=== PATIENT | male | born 1950 | race Caucasian/White ===

== ENCOUNTER → 2016-12-27 14:00 | Outpatient (REF) | payer MEDICARE, SELFPAY | END | disposition home or self-care (01) | LOC: OLS.DANBUR 14:00 | PROVIDERS: Visit Provider Internal Medicine | DX: N40.0 Benign prostatic hyperplasia without lower urinary tract symptoms (principal); E78.5 Hyperlipidemia, unspecified; H81.09 Meniere's disease, unspecified ear | CPT/HCPCS: 87493 ==

== ENCOUNTER → 2017-09-01 10:11 | Outpatient (REF) | payer MEDICARE, SELFPAY ==
[2017-09-12 09:27] LABS: Fats, Neutral Normal (.); Fats, Total Normal (.)
== END ==
LOC: OLS.DANBUR 10:11
PROVIDERS: Visit Provider Internal Medicine
DX: R19.7 Diarrhea, unspecified (principal)
CPT/HCPCS: 82705; 87493

== ENCOUNTER → 2017-09-01 18:03 | Outpatient (CLI) | payer MEDICARE, SELFPAY ==
--- NOTE | 2017-09-01 18:03 | DT_ITS ---
This patient was seen during an EMR downtime August 27, 2017 - September 03, 2017. This patient may have a combination of paper and electronic documentation or all paper documentation. All documentation is viewable within the e-chart portion of [employer] for each patient visit.
== END ==
LOC: LABSPEC 18:05 → OLS.DANBUR 18:05
PROVIDERS: Visit Provider Internal Medicine
DX: R19.7 Diarrhea, unspecified (principal)

== ENCOUNTER → 2019-10-02 05:00 | Outpatient (REF) | payer MEDICARE, SELFPAY ==
[2019-10-02 09:48] LABS: Hemoglobin A1c 5.7 % (3.8-5.6)
== END ==
LOC: OLS.DANBUR 05:00
PROVIDERS: Visit Provider Internal Medicine
DX: E78.5 Hyperlipidemia, unspecified (principal); Z79.899 Other long term (current) drug therapy
CPT/HCPCS: 36415; 83036

== ENCOUNTER → 2019-10-06 04:00 | Outpatient (REF) | payer MEDICARE, SELFPAY ==
[2019-10-06 08:19] LABS: Anion Gap 7 (5-15); BUN 18 mg/dL (7-18); BUN/Creat Ratio 22.2 RATIO (10-20); Calcium,Total 8.6 mg/dL (8.5-10.1); Chloride 104 mmol/L (98-107); Cholesterol 164 mg/dL (200); Creatinine, Serum 0.81 mg/dL (0.70-1.30); EST Glomerular Filtration Rate 100 mL/min (>60); Est Glom Filt Rate - Afr Amer 121 mL/min (>60); Glucose 100 mg/dL (74-106); High Density Lipoprotein 47 mg/dL; Potassium 3.8 mmol/L (3.5-5.1); Sodium Level 140 mmol/L (136-145); Triglycerides 182 mg/dL; Very Low Density Lipoprotein 36 mg/dL (5-40)
== END ==
LOC: OLS.DANBUR 04:00
PROVIDERS: Referring Provider Internal Medicine; Visit Provider Internal Medicine
DX: N40.0 Benign prostatic hyperplasia without lower urinary tract symptoms (principal); E78.5 Hyperlipidemia, unspecified
CPT/HCPCS: 36415; 80048; 80061

== ENCOUNTER → 2020-04-15 05:00 | Outpatient (REF) | payer MEDICARE, SELFPAY ==
[2020-04-15 07:51] LABS: Anion Gap 3 (5-15); BUN 19 mg/dL (7-18); BUN/Creat Ratio 22.9 RATIO (10-20); Calcium,Total 8.4 mg/dL (8.5-10.1); Chloride 106 mmol/L (98-107); Cholesterol 144 mg/dL (200); Creatinine, Serum 0.83 mg/dL (0.70-1.30); EST Glomerular Filtration Rate 97 mL/min (>60); Est Glom Filt Rate - Afr Amer 117 mL/min (>60); Glucose 93 mg/dL (74-106); High Density Lipoprotein 50 mg/dL; Potassium 3.6 mmol/L (3.5-5.1); Sodium Level 140 mmol/L (136-145); Triglycerides 80 mg/dL; Very Low Density Lipoprotein 16 mg/dL (5-40)
[2020-04-15 08:47] LABS: Hemoglobin A1c 5.7 % (3.8-5.6)
== END ==
LOC: OLS.DANBUR 05:00
PROVIDERS: Referring Provider Internal Medicine; Visit Provider Internal Medicine
DX: N40.0 Benign prostatic hyperplasia without lower urinary tract symptoms (principal); E78.5 Hyperlipidemia, unspecified; F33.0 Major depressive disorder, recurrent, mild; H43.819 Vitreous degeneration, unspecified eye; H81.09 Meniere's disease, unspecified ear; Z79.899 Other long term (current) drug therapy
CPT/HCPCS: 36415; 80048; 80061; 83036

== ENCOUNTER → 2022-02-01 | Outpatient (CLI) | payer MEDICARE, SELFPAY ==
--- NOTE | 2022-02-01 11:55 | RAD_ITS ---
EXAM: XR ABDOMEN, 1 VIEW CLINICAL INDICATION: CONSTIPATION TECHNIQUE: Frontal supine view of the abdomen/pelvis. This report was created using [employer] report generation technology. COMPARISON: None. FINDINGS: LOWER THORAX: No acute pathology. GASTROINTESTINAL TRACT: Unremarkable. Non-obstructive. No bowel or stomach distention. ORGANS: Unremarkable as visualized. No organomegaly. No abnormal calcifications. BONES/JOINTS: No acute pathology. SOFT TISSUES: No acute pathology. RAD/Abdomen Single View IMPRESSION: Non-obstructive bowel gas pattern. Electronically Signed: Sae Jones MD at 20:56 EST ,
== END | disposition home or self-care (01) ==
LOC: MTRAD 11:44
PROVIDERS: PCP Internal Medicine; Referring Provider Internal Medicine Gastroenterology; Visit Provider Internal Medicine Gastroenterology
DX: K59.00 Constipation, unspecified (principal); R14.0 Abdominal distension (gaseous)
CPT/HCPCS: 74018

== ENCOUNTER → 2023-01-29 | Outpatient (CLI) | payer MEDICARE, SELFPAY ==
[2023-01-29 16:10] LABS: PSA,Total- Diagnostic 3.66 ng/mL (0.0-4.0)
== END | disposition home or self-care (01) ==
LOC: LAB 15:03
PROVIDERS: PCP Internal Medicine; Referring Provider Urology; Visit Provider Urology
DX: N40.1 Benign prostatic hyperplasia with lower urinary tract symptoms (principal)
CPT/HCPCS: 36415; 84153

== ENCOUNTER → 2023-12-26 | Outpatient (CLI) | payer MEDICARE, SELFPAY ==
[2023-12-26 15:59] LABS: Absolute Lymphocyte Count 1.09 X10^3/uL (0.83-4.51); Absolute Neutrophil Count 4.2 X10^3/uL (2.0-7.7); Basophil# 0.07 X10^3/uL; Basophil% 1.2 % (0-1); Eosinophil# 0.16 X10^3/uL; Eosinophils% 2.7 % (0-5); Hematocrit 39.6 % (40-54); Hemoglobin 13.1 g/dL (13.0-16.5); Lymphocyte # 1.09 X10^3/ul (0.83-4.51); Lymphocyte % 18.4 % (19-41); Mean Corp Hgb Conc 33.1 g/dL (32-36); Mean Corpuscular Hgb 30.4 pg (27.0-32.0); Mean Corpuscular Volume 91.9 fL (80-94); Mean Platelet Vol. 10.4 fl (6.2-12.0); Monocyte# 0.43 X10^3/uL; Monocyte% 7.3 % (0-10); NRBC Flagged by Analyzer 0 % (0-5); Neutrophil # 4.17 X10^3/uL (2.7-7.7); Neutrophil % 70.2 % (47-70); Platelet Count 228 K/mm3 (150-450); RBC Distribution Width CV 14.3 % (11.6-14.6); RBC Distribution Width SD 48.4 fl (35.1-43.9); Red Blood Count 4.31 M/mm3 (4.6-6.2); White Blood Count 5.9 K/mm3 (4.4-11.0)
[2023-12-26 16:07] LABS: Erythrocyte Sedimentation Rate 2 mm/hr (0-20)
[2023-12-26 16:41] LABS: ALB/GLOB Ratio 1.3 RATIO (0.9-2.4); AST(SGOT) 19 U/L (15-37); Alanine Aminotransfer ALT/SGPT 21 U/L (16-61); Albumin, Serum 3.8 g/dL (3.2-5.0); Alkaline Phosphatase 65 U/L (45-117); Anion Gap 4 (5-15); BUN 18 mg/dL (7-18); BUN/Creat Ratio 22.2 RATIO (10-20); CRP < 2.90 mg/L (0.0-3.0); Calcium,Total 8.9 mg/dL (8.5-10.1); Chloride 106 mmol/L (98-107); Creatinine, Serum 0.81 mg/dL (0.70-1.30); EST Glomerular Filtration Rate 99 mL/min (>60); Est Glom Filt Rate - Afr Amer 119 mL/min (>60); Globulin 2.9 g/dL (2.2-4.2); Glucose 98 mg/dL (74-106); Potassium 4.2 mmol/L (3.5-5.1); Protein, Total 6.7 g/dL (6.4-8.2); Sodium Level 139 mmol/L (136-145)
[2023-12-29 20:07] LABS: Beef <0.10 kU/L (Class 0); Chocolate <0.10 kU/L (Class 0); Codfish <0.10 kU/L (Class 0); Corn <0.10 kU/L (Class 0); Egg, Whole <0.10 kU/L (Class 0); Milk (Cow) <0.10 kU/L (Class 0); Mussels <0.10 kU/L (Class 0); Peanut <0.10 kU/L (Class 0); Pork <0.10 kU/L (Class 0); Salmon <0.10 kU/L (Class 0); Shrimp <0.10 kU/L (Class 0); Soybean <0.10 kU/L (Class 0); Tuna <0.10 kU/L (Class 0); Wheat <0.10 kU/L (Class 0)
== END | disposition home or self-care (01) ==
LOC: LAB 14:52
PROVIDERS: PCP Internal Medicine; Referring Provider Student in an Organized Health Care Education/Training Program; Visit Provider Student in an Organized Health Care Education/Training Program
DX: R19.7 Diarrhea, unspecified (principal)
CPT/HCPCS: 36415; 80053; 85025; 85652; 86003; 86005; 86140

== ENCOUNTER → 2023-12-31 | Outpatient (CLI) | payer MEDICARE, SELFPAY ==
[2024-01-02 05:07] LABS: Pancreatic Elastase, Fecal 201 (>200)
[2024-01-02 11:09] LABS: Calprotectin, Stool 252 ug/g (0-120)
== END | disposition home or self-care (01) ==
LOC: LABSPEC 09:09
PROVIDERS: PCP Internal Medicine; Referring Provider Student in an Organized Health Care Education/Training Program; Visit Provider Student in an Organized Health Care Education/Training Program
DX: R19.7 Diarrhea, unspecified (principal); K58.9 Irritable bowel syndrome, unspecified
CPT/HCPCS: 82653; 83630; 83993; 87177; 87209; 87329; 87493; 87506

== ENCOUNTER → 2024-04-15 | Outpatient (CLI) | payer MEDICARE, SELFPAY ==
[2024-04-19 02:07] LABS: Calprotectin, Stool 207 ug/g (0-120)
== END | disposition home or self-care (01) ==
LOC: LABSPEC 13:09
PROVIDERS: PCP Internal Medicine; Referring Provider Nurse Practitioner Acute Care; Visit Provider Nurse Practitioner Acute Care
DX: R19.7 Diarrhea, unspecified (principal)
CPT/HCPCS: 83993

== ENCOUNTER 2024-06-03 11:42 | Day surgery (SDC) | payer MEDICARE, SELFPAY ==
[2024-06-03] VITALS (8 sets, daily range): BP systolic 97–167; BP diastolic 65–89; PULSE 61–97; RESP 16; TEMP 35.9–36.4; O2SAT 94–100; BMI 24.8
--- NOTE | 2024-06-03 12:46 | PRE.ANES_ITS ---
ASA Classification* ASA Classification ASA Classification: 3 (NO VERSED) Assessment & Plan Anesthesia* Anesthesia Assessment Anesthesia Assessment: Discussed sedation and/or anesthesia options, risks, benefits, and alternatives with patient/parents/legal guardian/POA. Questions invited. The patient/parents/legal guardian/POA seems to understand and agrees to proceed with anesthesia plan. Reviewed the physical assessment, medical history, allergy history and patient home medications list prior to surgery/procedure/anesthetic and documented any changes. Performed airway and anesthesia risk assessments. Anesthesia Type Anesthesia Type: General History Source History Obtained from:: Patient and Chart Anesthesia Focused Assessment* Temperature: 97.5 F Pulse Rate: 61 Blood Pressure: 167/89 Respiratory Rate: 16 Pulse Ox: 100 Oxygen Delivery Method: Room Air Airway Assessment Mouth opens: >3 cm Mallampati Score: II Teeth Condition: Intact Neck Range of motion (ROM): Full ROM Focused Labs Anesthesia Preop lab: CBC WBC 5.9 K/mm3 (4.4-11.0) 12/26/23 15:15 12/26/23 RBC 4.31 M/mm3 (4.6-6.2) L 12/26/23 15:15 12/26/23 Hgb 13.1 g/dL (13.0-16.5) 12/26/23 15:15 12/26/23 Hct 39.6 % (40-54) L 12/26/23 15:15 12/26/23 Plt Count 228 K/mm3 (150-450) 12/26/23 15:15 12/26/23 CHEMISTRY Potassium 4.2 mmol/L (3.5-5.1) 12/26/23 15:15 12/26/23 Sodium 139 mmol/L (136-145) 12/26/23 15:15 12/26/23 BUN 18 mg/dL (7-18) 12/26/23 15:15 12/26/23 Creatinine 0.81 mg/dL (0.70-1.30) 12/26/23 15:15 12/26/23 Glucose 98 mg/dL (74-106) 12/26/23 15:15 12/26/23 COAG Pre-Assessment Diagnosis/Proposed Procedure Planned Operative Procedure(s): COLONOSCOPY Anesthesia History Anesthesia History - property assistant: Anesthesia History - property assistant Hx Hospitalization No 05/29/24 08:54 Any Problems With Anesthesia No 05/29/24 08:54 Cholinesterase deficiency No 05/29/24 08:54 You/Your Family Experience No 05/29/24 08:54 fever (hyperthermia) with Relationship Recent Exposure to Contagious No 06/03/24 12:05 Disease Does patient have nerve No 05/29/24 08:54 stimulator Patient instructed to have device shut off --Does patient have Pacemaker No 06/03/24 12:05 or ICD? When Was Last Pacemaker Check QUESTION #4 FULL TEXT: You/Your Family Experience fever (hyperthermia) with Anesthesia Any additional information?: No Last Oral Intake Last Oral intake: Last Oral Intake NPO since 09:00 06/03/24 12:05 Meds taken in AM with sips of No 06/03/24 12:05 water? Meds patient instructed to take am of surgery Any additional information?: No PONV PONV - property assistant: PONV - property assistant Female No 05/29/24 08:54 HX of Motion Sickness No 05/29/24 08:54 HX of N/V After Surgery No 05/29/24 08:54 Non-Smoker Yes 05/29/24 08:54 Duration of Surgery greater No 05/29/24 08:54 than 60 minutes Number of Risk Factors 1 05/29/24 08:54 PONV Score Low Risk 05/29/24 08:54 Any additional information?: No Height & Weight Height & Weight: Anesthesia: Height & Weight Height 5 ft 7 in 06/03/24 12:05 Weight: 71.9 kg 06/03/24 12:05 Body Mass Index (BMI) 24.8 06/03/24 12:05 Respiratory Assessment Respiratory Assessment - property assistant: Respiratory Tract Infection Hx - property assistant Hx Respiratory Tract Infection No 05/29/24 08:54 Any additional information?: No STOP Sleep Apnea STOP Sleep Apnea - property assistant: STOP Sleep Apnea - property assistant Hx Hypertension No 05/29/24 08:54 Hx Sleep Apnea No 05/29/24 08:54 CPAP BIPAP Do you snore loudly (louder No 05/29/24 08:54 than talking or can be heard Do you often feel tired/ No 05/29/24 08:54 fatigued/ sleepy during daytime? Has anyone observed you stop No 05/29/24 08:54 breathing during sleep? STOP Results Negative 05/29/24 08:54 QUESTION #5 FULL TEXT : Do you snore loudly (louder than talking or can be heard through closed doors)? 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 Specify any problems Hx of Preganancy in last 3 N/A 05/29/24 08:54 Months Nurse Filling Out Transfusion VCHRISTIN 05/29/24 08:54 & Questions: Date: 05/29/24 05/29/24 08:54 Time: 08:56 05/29/24 08:54 Patient unable to answer at this time (ie. confused, unrespo Any additional information?: No /Reproduction History /Reproductive History - property assistant: /Reproductive Hx- property assistant Hx Now Gestational Age (in weeks): EDC: Hx Hx Para Hx Section SAB Any additional information?: No PFSH Medical History Wears glasses Depression Anxiety Arthritis Injury of head and neck Blackout Gastric reflux Non-smoker Leg cramps History of trigger finger Home Medications ?Medication ?Instructions ?Recorded ?Last Taken ?Type citalopram 10 mg tablet (Celexa) 10 mg PO DAILY Unknown History finasteride 5 mg tablet (Proscar) 5 mg PO DAILY Unknown History ketoconazole 2 % shampoo 1 applic topical 2XW 4 Unknown History lactase 3,000 unit tablet 3,000 unit PO TID 08/17/23 U nknown History lysine 500 mg tablet 500 mg PO DAILY 08/17/23 Unk nown History meclizine 25 mg chewable tablet 25 mg PO DAILY PRN diz ziness 08/17/23 Unknown History (Antivert) meloxicam 7.5 mg tablet 7.5 mg PO DAILY 08/17/23 Unk nown History rdeoccgy-zns-fstsn acid 0.4 1 tab PO DAILY 08/17/23 Un known History mg-lycopene 300 mcg-lutein 250 mcg tablet (Centrum Silver) omeprazole 20 mg capsule,delayed 20 mg PO DAILY Unknown History release tamsulosin 0.4 mg capsule (Flomax) 0.8 mg PO QHS 08/16 Unknown History Lactobacillus acidophilus 100 mg PO QDAY 04/03/24 Unkn own History (Acidophilus capsule) colestipol 1 gram tablet 1 g PO BID #180 tabs 5 Unknown Rx loperamide 2 mg capsule 2 mg PO Q6H PRN loose stool #120 04/08/24 Unknown Rx (Anti-Diarrheal (loperamide)) caps cholecalciferol (vitamin D3) 25 25 mcg PO DAILY Unknown History mcg (1,000 unit) capsule (Vitamin D3) hydrocortisone 2.5 % topical cream 1 applic topical MN N 05/29/24 Unknown History with perineal applicator (Procto-Med HC) Allergy/AdvReac Type Severity Reaction Status Date / Time No Known Allergies Allergy Verified 06/03/24 12:03 Surgical History Hx of hernia repair Hx of surgical procedure History of removal of skin mole Hx of hernia repair Hx of cataract extraction Hx of blepharoplasty History of colonoscopy Social History Smoking Status: Never smoker Review of Systems (Anesthesia) ROS Narrative System reviewed and no additional complaints, except as documented. Physical Exam Const alert, oriented x3 and average body habitus Resp normal respiratory effort, normal air movement and clear to auscultation bilaterally Cardio regular rate, regular rhythm, no murmurs and diaphoretic
--- NOTE | 2024-06-03 13:00 | EGD_PTH ---
PATIENT: DARRYN LANDAVERDE LOC: EN U#:[id number] AGE/SX: 73/M ROOM: RE06/03/[address]: Dr. Grzegorz Byrd DO : 1950 BED: DIS: 06/03/2024 SPEC #: [id number] RECD: 06/04/24 11:18 STATUS: JACKI REFrankie #: [id number] MARY: 06/03/24 13:[address]: Grzegorz Byrd DEPT: SURGICAL PATHOLOGY RECD BY: Gama Archuleta ENTERED: 06/04/24 11:19 SP TYPE: EGD BIOPSY MICAELA DR: Dr. Miguelangel Hester MD Tissues: A - Cecum, NOS B - Ileum, NOS C - COLON BIOPSY D - Transverse colon Procedures: Surgery Specimen Level IV HEADER OPERATION: Colonoscopy with biopsy and polypectomy with cold snare PRE-OP DIAGNOSIS: High fecal calprotectin, diarrhea TISSUE SUBMITTED: A- Cecum biopsy, B- Terminal ileum biopsy, C- Random colon biopsy, D- Transverse colon polyp MICROSCOPIC DIAGNOSIS A: CECUM, BIOPSY: * Focal superficial hyperplastic crypt change. * No acute inflammation or significant crypt distortion. B: TERMINAL ILEUM, BIOPSY: * Mucosal lymphoid aggregate, favor reactive. C: RANDOM COLON, BIOPSY: * Focal active colitis. * Negative for microscopic (lymphocytic/collagenous) colitis. D: TRANSVERSE COLON, POLYP, BIOPSY: * Tubular adenoma. MICROSCOPIC DESCRIPTION Slides are reviewed. GROSS DESCRIPTION A. Received in fixative is one container labeled with the patient's name and designated Cecum biopsy. The specimen consists of two irregular fragments of light becerra soft tissue that in aggregate measure 1.2 x 0.2 x 0.2 cm. The specimen is totally submitted in one cassette. B. Received in fixative is one container labeled with the patient's name and designated Terminal ileum biopsy. The specimen consists of multiple irregular fragments of light becerra soft tissue that in aggregate measure 1 x 0.2 x 0.2 cm. The specimen is totally submitted in one cassette. C. Received in fixative is one container labeled with the patient's name and designated Random colon biopsy. The specimen consists of multiple irregular fragments of light becerra soft tissue that in aggregate measure 2.4 x 0.3 x 0.2 cm. The specimen is totally submitted in one cassette. D. Received in fixative is one container labeled with the patient's name and designated Transverse colon polyp- cold snare. The specimen consists of multiple irregular fragments of light becerra soft tissue that in aggregate measure 2.1 x 0.2 x 0.1 cm. The specimen is totally submitted in one cassette. 06/04/2024 CPT:81428l5
--- NOTE | 2024-06-03 13:21 | PCM.HP.STD ---
HPI - General General Date of Admission: 06/03/24 Date of Service: 06/03/24 Chief Complaint: diarrhea HPI Narrative Chief Complaint: Diarrhea Details: DARRYN LANDAVERDE, is a 73 M who presents for endoscopic evaluation of his diarrhea. 73y/o male presents for follow-up of diarrhea. He was last seen by CRYSTAL Holcomb on 12/26/2023 CBC 12/26/2023 HGB 13.1 CMP 12/26/2023 normal transaminases Food Allergen panel 12/26/2023 normal Fecal Calprotectin 12/31/2023 elevated 252 Pancreatic Elastase 12/31/2023 normal Fecal Lactoferrin 12/31/2023 negative Stool for enteric pathogens 12/31/2023 negative C. Diff 12/31/2023 negative - per 01/07/2024 note (workload) His calprotectin is high. I would recommend colonoscopy but if he does not want one we can treat his diarrhea. We can try Budesonide 9mg daily for 3 months Insurance would not cover Budesonide. 01/14/2024 started colestipol BID - hard stools this past week - he is having a BM 2-3 a day, straining with BM - mucus passage from rectum - he still has his GB - reports he has lost 10lbs in the past couple of years - he has abdominal pain and experiences fecal urgency - last took Pepto a couple weeks ago - denies any fevers or night sweats - denies any family h/o colon CA - denies any heart or lung disease - denies any kidney disease - last colonoscopy was with Dr. Sanches - 02/09/2022 revealed a small polyp and large hemorrhoids - he resides in independent living - continues to drive - he is taking Pepto PRN - he is taking Loperamide 2mg QID - he is also taking OTC Imodium PFSH Medical History Wears glasses Depression Anxiety Arthritis Injury of head and neck Blackout Gastric reflux Non-smoker Leg cramps History of trigger finger Home Medications ?Medication ?Instructions ?Recorded ?Last Taken ?Type citalopram 10 mg tablet (Celexa) 10 mg PO DAILY 08/17/23 Unknown History finasteride 5 mg tablet (Proscar) 5 mg PO DAILY 08/17/23 Unknown History ketoconazole 2 % shampoo 1 applic topical 2XW 08/17/23 Unknown History lactase 3,000 unit tablet 3,000 unit PO TID 08/17/23 Unknown History lysine 500 mg tablet 500 mg PO DAILY 08/17/23 Unknown History meclizine 25 mg chewable tablet 25 mg PO DAILY PRN dizziness 08/17/23 Unknown History (Antivert) meloxicam 7.5 mg tablet 7.5 mg PO DAILY 08/17/23 Unknown History zqxrtpzv-yxl-jwfwu acid 0.4 1 tab PO DAILY 08/17/23 Unknown History mg-lycopene 300 mcg-lutein 250 mcg tablet (Centrum Silver) omeprazole 20 mg capsule,delayed 20 mg PO DAILY 08/17/23 Unknown History release tamsulosin 0.4 mg capsule (Flomax) 0.8 mg PO QHS 08/17/23 Unknown History Lactobacillus acidophilus 100 mg PO QDAY 04/03/24 Unknown History (Acidophilus capsule) colestipol 1 gram tablet 1 g PO BID #180 tabs 04/07/24 Unknown Rx loperamide 2 mg capsule 2 mg PO Q6H PRN loose stool #120 04/08/24 Unknown Rx (Anti-Diarrheal (loperamide)) caps cholecalciferol (vitamin D3) 25 25 mcg PO DAILY 05/29/24 Unknown History mcg (1,000 unit) capsule (Vitamin D3) hydrocortisone 2.5 % topical cream 1 applic topical PRN 05/29/24 Unknown History with perineal applicator (Procto-Med HC) Allergy/AdvReac Type Severity Reaction Status Date / Time No Known Allergies Allergy Verified 06/03/24 12:03 Surgical History Hx of hernia repair Hx of surgical procedure History of removal of skin mole Hx of hernia repair Hx of cataract extraction Hx of blepharoplasty History of colonoscopy Social History Smoking Status: Never smoker ROS Constitutional Constitutional: Denies fatigue, fever(s), poor appetite, weight gain or weight loss Gastrointestinal Gastrointestinal: Denies belching, bloating, change in bowel habits, change in stool character, chewing difficulty, coffee ground emesis, constipation, cramping, diarrhea, dyspepsia, dysphagia, early satiety, excessive flatus, fecal incontinence, heartburn, hematemesis, hematochezia, hemorrhoids, loose stools, melena, nausea, odynophagia, rectal bleeding, tenesmus, vomiting or weight changes Vital Signs Vital Signs Vital Signs: 06/03/24 12:05 06/03/24 12:05 06/03/24 12:48 Temperature 97.5 F L 97.5 F L Temperature Source Temporal Pulse Rate 61 61 Respiratory Rate 16 16 Respiratory Pattern Normal Blood Pressure 167/89 H 167/89 H Blood Pressure Mean 115 Blood Pressure Source Monitor Blood Pressure Position Semi-Fowlers Blood Pressure Location Right Arm Pulse Ox 100 100 Oxygen Delivery Method Room Air Room Air Weight Weight: 158 lb 8.198 oz Body Mass Index (BMI) 24.8 Physical Exam Const alert, oriented x3, no apparent distress and healthy appearing General Appearance: cooperative GI normal to inspection, nondistended, normoactive bowel sounds, soft to palpation, non-tender and non-distended Percussion: normal to percussion Rectal Exam: deferred Assessment & Plan Assessment/Plan (1) High fecal calprotectin: (2) Diarrhea: PLAN: Assessment and Plan Assessment and Plan (1) Diarrhea: Status: Acute (2) Constipation: Status: Acute (3) High fecal calprotectin: Status: Acute (4) Generalized abdominal pain: Status: Acute Medications: Changed From loperamide (Anti-Diarrheal (loperamide)) 2 mg PO Q6H To loperamide (Anti-Diarrheal (loperamide)) 2 mg PO Q6H PRN 90 caps 0RF loose stool Refilled colestipol 1 g PO BID 180 tabs 2RF Plan 73y/o male presents for follow-up of diarrhea. He was last seen by CRYSTAL Lutz on 12/26/2023 with complaints of frequent diarrhea for >2 years. CBC, CMP, food allergen panel, fecal elastase, lactoferrin, enteric pathogens and C. Diff were all negative December 2023. Fecal Calprotectin was elevated to 252. He reports his last colonoscopy was in 2021 ([facility]) and revealed a small polyp and large hemorrhoids. He started Coletipol BID 01/14/2024 and reports continuing to have loose frequent stools until 2 weeks ago when he developed some hard stools and straining with BM. He is continuing to have 2-3 BM daily, mucus with BM, fecal urgency and generalized abdominal pain. He resides in Independent Living, continues to drive and prepares his own meals. In addition to Colestipol BID he has been taking Loperamide 2mg TID AC, Imodium OTC PRN and Pepto PRN. I have asked him to discontinue loperamide and Imodium. He will continue Colestipol BID and repeat fecal calprotectin. I am concerned with his ongoing symptoms previously elevated calprotectin and unknown cause for change in bowel. He is agreeable to repeating colonoscopy is fecal calprotectin remains elevated or symptoms are persisting. Patient Instructions: 1. Stop taking Loperamide 2mg with each meal (brown oblong pill) due to constipation - remove from your pill pack - you make take this as needed for diarrhea 2. Do not take Loperamide if you are experiencing constipation, straining with bowel movements 3. Discontinue all use of over the counter Imodium 4. Okay to take pepto as needed sparingly for diarrhea 5. Continue Colestipol twice a day 6. Repeat stool testing (fecal calprotectin) if this remains elevated will proceed with colonoscopy
--- NOTE | 2024-06-03 14:13 | PCM.POST.ANE ---
Anesthesia: Postop Eval I Current Vital Signs Temperature: 97.3 F Pulse Rate: 97 Blood Pressure: 97/74 Respiratory Rate: 16 Pulse Ox: 97 Oxygen Delivery Method: Room Air Assessment Airway patent: Yes Spontaneous unlabored respirations: Yes Mental status: Asleep nausea: No Vomiting: No Anesthesia Complication: Yes Anesthesia Complication Comment:: vagal bradycardia, tx with glyco. then ephedrine Fluid Hydration Crystalloid volume administer (ml): 40 Total IV fluid infused: 40 Progress Note Anesthesia document: Postop Eval 1 completed: Yes
--- NOTE | 2024-06-03 14:14 | OP.CCLET_ITS ---
06/03/2024 Miguelangel Hester [address] [place] [address] Re : Colonoscopy procedure for Christopher Sarabia Dear Dr. Hester This procedure was performed on Monday, June 03, 2024. My impressions and recommendations are as follows: Impressions : - One 7 mm polyp in the transverse colon, removed with a cold snare. Resected and retrieved. - Patchy mild inflammation was found in the rectum, in the sigmoid colon and in the cecum secondary to colitis. Biopsied. - Mild inflammation was found in the ileum secondary to ileitis. Biopsied. - Hemorrhoids. Recommendations : - Repeat colonoscopy in 5 years for surveillance based on pathology results. - Continue present medications. My findings are described in the full procedure note, which is enclosed. If I can be of further assistance, please feel free to contact me at . Sincerely, Grzegorz Friend, 06/03/2024 2:14:12 PM This report has been signed electronically.
--- NOTE | 2024-06-03 14:14 | OP.COLON_ITS ---
Patient Name: Christopher Sarabia Procedure Date: 06/03/2024 1:27 PM Date of : 1950 Age: 73 Procedure: Colonoscopy Indications: Chronic diarrhea Providers: DO Annie Frey MD: Miguelangel Hester Medicines: Monitored Anesthesia Care Patient Profile: This is a 73 year old male. Refer to note in patient chart for documentation of history and physical. Last Colonoscopy: more than 10 years ago. Complications: No immediate complications. Procedure: Pre-Anesthesia Assessment: - Prior to the procedure, a History and Physical was performed, and patient medications and allergies were reviewed. The patient is competent. The risks and benefits of the procedure and the sedation options and risks were discussed with the patient. All questions were answered and informed consent was obtained. Patient identification and proposed procedure were verified by the physician in the pre-procedure area. Mental Status Examination: alert and oriented. Airway Examination: normal oropharyngeal airway and neck mobility. Respiratory Examination: clear to auscultation. CV Examination: normal. ASA Grade Assessment: II - A patient with mild systemic disease. After reviewing the risks and benefits, the patient was deemed in satisfactory condition to undergo the procedure. The anesthesia plan was to use moderate sedation / analgesia (conscious sedation). Immediately prior to administration of medications, the patient was re-assessed for adequacy to receive sedatives. The heart rate, respiratory rate, oxygen saturations, blood pressure, adequacy of pulmonary ventilation, and response to care were monitored throughout the procedure. The physical status of the patient was re-assessed after the procedure. After I obtained informed consent, the scope was passed under direct vision. Throughout the procedure, the patient's blood pressure, pulse, and oxygen saturations were monitored continuously. The Colonoscope was introduced through the anus and advanced to the terminal ileum. The colonoscopy was performed without difficulty. The patient tolerated the procedure well. The quality of the bowel preparation was adequate. The terminal ileum, ileocecal valve, appendiceal orifice, and rectum were photographed. Scope In: 1:40:06 PM Scope Withdrawal Time 0 hours 15 minutes 7 seconds Scope Out: 2:02:55 PM Total Procedure Duration Time 0 hours 22 minutes 49 seconds Findings: A 7 mm polyp was found in the transverse colon. The polyp was sessile. The polyp was removed with a cold snare. Resection and retrieval were complete. Verification of patient identification for the specimen was done. Estimated blood loss was minimal. Patchy mild inflammation characterized by congestion (edema) and erythema was found in the rectum, in the sigmoid colon and in the cecum. Biopsies were taken with a cold forceps for histology. Verification of patient identification for the specimen was done. Estimated blood loss was minimal. Patchy mild inflammation characterized by congestion (edema) was found in the terminal ileum. Biopsies were taken with a cold forceps for histology. Verification of patient identification for the specimen was done. Estimated blood loss was minimal. Hemorrhoids were found during retroflexion. The hemorrhoids were Grade II (internal hemorrhoids that prolapse but reduce spontaneously). Impression: - One 7 mm polyp in the transverse colon, removed with a cold snare. Resected and retrieved. - Patchy mild inflammation was found in the rectum, in the sigmoid colon and in the cecum secondary to colitis. Biopsied. - Mild inflammation was found in the ileum secondary to ileitis. Biopsied. - Hemorrhoids. Recommendation: - Repeat colonoscopy in 5 years for surveillance based on pathology results. - Continue present medications. Procedure Code(s): --- Professional --- 44291, Colonoscopy, flexible; with removal of tumor(s), polyp(s), or other lesion(s) by snare technique 99059, 59, Colonoscopy, flexible; with biopsy, single or multiple CPT copyright 2021 [employer]. All rights reserved. The codes documented in this report are preliminary and upon rand tacker review may be revised to meet current compliance requirements. Grzegorz Byrd DO 06/03/2024 2:14:12 PM This report has been signed electronically. Number of Addenda: 0 Note Initiated On: 06/03/2024 1:27 PM
--- NOTE | 2024-06-03 17:12 | PCM.POSTANE2 ---
Anesthesia Postop Eval I Sum Postop Eval Completion status Anesthesia document: Postop Eval 1 completed: Yes Anesthesia Postop Eval I Summary Anesthesia Postop Eval I Summary: Anesthesia Postop Eval I: Assessment Summary Airway patent Yes 06/03/24 14:15 [email or web address] Spontaneous unlabored Yes 06/03/24 14:15 [email or web address] respirations Mental status Asleep 06/03/24 14:15 [email or web address] nausea No 06/03/24 14:15 [email or web address] Vomiting No 06/03/24 14:15 [email or web address] Anesthesia Postop Eval I: Fluid Summary Crystalloid volume administer 40 06/03/24 14:15 [email or web address] (ml) Colloids volume administered ( ml) Blood Product volume administered (ml) Total IV fluid infused 40 06/03/24 14:15 [email or web address] Anesthesia Postop Eval I: Summary Notes Anesthesia Complication Yes 06/03/24 14:15 [email or web address] Anesthesia Complication vagal bradycardia, 06/03/24 14:15 [email or web address] Comment: tx with glyco. then ephedrine Post-operative progress note Anesthesia: Postop Eval II Evaluation Mental status: Awake Pain Level: 0 nausea: No Vomiting: No Complications Anesthesia Complication: No
== END 2024-06-03 15:04 | disposition home or self-care (01) ==
LOC: EN 11:43 → AC 11:45
PROVIDERS: PCP Internal Medicine; Referring Provider Internal Medicine; Visit Provider Internal Medicine Gastroenterology
PROC: 0DJD8ZZ Inspection of Lower Intestinal Tract, Via Natural or Artificial Opening Endoscopic (ICD-10-PCS; CPT 45378; principal; 2024-06-03 12:55)
DX: K52.9 Noninfective gastroenteritis and colitis, unspecified (principal); R10.84 Generalized abdominal pain; K59.00 Constipation, unspecified; K63.5 Polyp of colon; F41.9 Anxiety disorder, unspecified; Z79.899 Other long term (current) drug therapy; K21.9 Gastro-esophageal reflux disease without esophagitis; Z98.49 Cataract extraction status, unspecified eye; R85.89 Other abnormal findings in specimens from digestive organs and abdominal cavity; K64.1 Second degree hemorrhoids
CPT/HCPCS: 45385; 45380; 88305; A4216; J2405

== ENCOUNTER → 2024-08-25 | Outpatient (CLI) | payer MEDICARE, SELFPAY ==
[2024-08-25 18:15] LABS: PSA,Total - Annual Screen 2.01 ng/mL (0.02-4.00)
== END | disposition home or self-care (01) ==
LOC: LAB 16:29
PROVIDERS: PCP Internal Medicine; Referring Provider Nurse Practitioner; Visit Provider Nurse Practitioner
DX: Z12.5 Encounter for screening for malignant neoplasm of prostate (principal)
CPT/HCPCS: 36415; 84153; G0103

== ENCOUNTER → 2025-03-09 | Outpatient (CLI) | payer MEDICARE, SELFPAY ==
[2025-03-11 10:08] LABS: Calprotectin, Stool 164 ug/g (0-120)
== END | disposition home or self-care (01) ==
LOC: LABSPEC 08:45
PROVIDERS: PCP Internal Medicine; Referring Provider Nurse Practitioner Acute Care; Visit Provider Nurse Practitioner Acute Care
DX: K52.9 Noninfective gastroenteritis and colitis, unspecified (principal)
CPT/HCPCS: 83993